=== PATIENT | male | born 1950 | race African-American/Black ===

== ENCOUNTER 2018-07-17 02:32 | Emergency (ER) | payer BC, MEDICARE ==
[~2018-07-17] VITALS: Ht 185.4 cm; Wt 97.5 kg
[~2018-07-17 02:32] MED LIST: CHLOROTHIAZIDE250 MG PO
[2018-07-17 02:37] VITALS: BP 139/86
--- NOTE | 2018-07-17 02:38 | Emergency Room Report ---
History of Present Illness General Chief Complaint: Seizure Source: Family Member, EMS Present Illness HPI Is a 67-year-old male with history of high blood pressure. He had one seizure in 2016. He presents with chief complaint of seizure. History is through EMS and spoke with his . He was admitted had a tonic-clonic seizure activity. Unknown amount of time. On arrival EMS said he was postictal and combative. They gave him 5 member said I am. Now he sedated and snoring. No trauma. No fever chills. There is some or trauma. No incontinence of urine. Allergies: Coded Allergies: No Known Allergies (Unverified , 12/24/15) Patient History Past Medical History: see triage record, old chart reviewed Past Surgical History: other Pertinent Family History: none Social History: Denies: smoking Immunizations: other Reviewed Nursing Documentation: PMH: Agreed; PSxH: Agreed Nursing Documentation-PMH Past Medical History Deferred: Patient Unconscious Review of Systems All Other Systems: limited - Patient is sedated and postictal Physical Exam Vital Signs Date Time Temp Pulse Resp B/P (MAP) Pulse Ox O2 Delivery O2 Flow Rate FiO2 07/17/18 02:26 98.8 107 21 139/86 97 Non-Rebreather vitals with tachycardia Sp02 EP Interpretation: reviewed, normal General Appearance: well appearing, no apparent distress, alert Head: normocephalic, atraumatic Eyes: bilateral eye PERRL, bilateral eye EOMI ENT: hearing grossly normal, normal pharynx, other - Tongue abrasion Neck: full range of motion, supple, no meningismus Respiratory: chest non-tender, lungs clear, normal breath sounds Cardiovascular #1: regular rate, rhythm, no murmur Gastrointestinal: normal bowel sounds, non tender, no mass, no organomegaly, no bruit, non-distended Musculoskeletal: back normal, normal range of motion Psychiatric: mood/affect normal Skin: warm/dry Medical Decision Making Diagnostic Impression: Primary Impression: Epileptic seizure, generalized ER Course This patient presents with a seizure. He had one in 2016. Because is a second one, I will put him on antiepileptic medication. After the first one he saw a neurologist and had EEG Deveney was normal. He was cleared to drive again. I explained to his and patient that I have to do a DMV report and restrict is driving privileges. He will need clearance from a neurologist again. They express understanding. His said that he just found out that a sister is very sick and may . This may cause him to have lack of sleep and lower his seizure threshold. Lab Results Impression labs unremarkable CT/MRI/US Diagnostic Results CT/MRI/US Diagnostic Results : Imaging Test Ordered: CT head Impression negative per radiologist Last Vital Signs Date Time Temp Pulse Resp B/P (MAP) Pulse Ox O2 Delivery O2 Flow Rate FiO2 07/17/18 02:26 98.8 107 21 139/86 97 Non-Rebreather Status: improved Disposition: HOME, SELF-CARE Condition: Stable Scripts Levetiracetam (KEPPRA) 500 Mg Tablet 500 MG ORAL EVERY 12 HOURS, #60 TAB 0 Refills Prov: Christopher Seth MD 07/17/18 Patient Instructions: Seizure, Adult Additional Instructions: Follow-up with your doctor in 7 days. You will need clearance from a neurologist to drive again. Return if symptom worsen. Christopher Seth MD Jul 17, 2018 02:38
[2018-07-17] MEDS ORDERED: levETIRAcetam 500 MG in D5W 110 ML IV ONE (02:45)
[2018-07-17 02:55] LABS: BASOPHILS % (AUTO) 2.2 % (0.0-2.0); EOSINOPHILS % (AUTO) 1.5 % (0.0-3.0); HEMATOCRIT 41.9 % (42.0-52.0); LYMPHOCYTES % (AUTO) 43.5 % (20.0-45.0); MEAN CORPUSCULAR VOLUME 91 FL (80-99); MONOCYTES % (AUTO) 6.4 % (1.0-10.0); NEUTROPHILS % (AUTO) 46.4 % (45.0-75.0); PLATELET COUNT 311 K/UL (150-450); RED BLOOD COUNT 4.59 M/UL (4.70-6.10); RED CELL DISTRIBUTION WIDTH 11.5 % (11.6-14.8)
[2018-07-17 03:02] LABS: ANION GAP 17 mmol/L (5-15); BLOOD UREA NITROGEN 13 mg/dL (7-18); CALCIUM 9.6 MG/DL (8.5-10.1); CARBON DIOXIDE 25 MMOL/L (21-32); CHLORIDE 96 MMOL/L (98-107); CREATININE 1.2 MG/DL (0.55-1.30); POTASSIUM 3.4 MMOL/L (3.5-5.1); SODIUM 138 MMOL/L (136-145)
[2018-07-17] MEDS ORDERED: KEPPRA500 M4 ORAL (03:56)
[2018-07-17 04:12] VITALS: BP 139/86
--- NOTE | 2018-07-17 10:51 | Diagnostic Imaging Report ---
Indication: Seizure Technique: Contiguous 5 mm thick transaxial imaging of the head obtained in a Siemens Sensation [address] scanner. Soft tissue and bone windows generated. Automatic Exposure Control was utilized. Total Dose length Product (DLP): 1467.[address] Dose Index Volume (CTDIvol): 70.38 mGy Comparison: 12/24/2015 Findings: There is mild prominence of the ventricles, basal cisterns, and cerebral sulci consistent with atrophy. Mild, nonspecific, white matter hypoattenuation is noted throughout the brain consistent with chronic small vessel disease. There is no midline shift, edema, acute hemorrhage, mass effect, or abnormal extra-axial fluid collections. The mastoids are under pneumatized and sclerotic bilaterally. Impression: No acute intracranial bleed, mass effect or edema. Mild atrophy of the brain. Nonspecific white matter hypoattenuation probably due to chronic small vessel disease. Chronic bilateral mastoiditis No significant change appreciated. [facility] has communicated the preliminary results to the Emergency Department. Their findings are largely concordant with this report. The CT scanner at [facility] is accredited by the [employer] and the scans are performed using dose optimization techniques as appropriate to a performed exam including Automatic Exposure control.
== END 2018-07-17 04:16 | disposition home or self-care (01) ==
LOC: EDBD 02:32 → EMR 02:45
DX: G40.409 Other generalized epilepsy and epileptic syndromes, not intractable, without status epilepticus (principal)
CPT/HCPCS: 36415; 70450; 80048; 85025; 96361; 96374; 99284; J1953